=== PATIENT | male | born 1970 | race Caucasian/White ===

== ENCOUNTER 2019-03-08 08:44 | Day surgery (SDC) | payer OTHER ==
[~2019-03-08] VITALS: Ht 180.3 cm; Wt 78.9 kg
[~2019-03-08 08:44] MED LIST: LISINOPRIL10 MG PO; NORCO 7.5-3251 EACH PO
--- NOTE | 2019-03-08 12:21 | NUR ---
03/08/19 [address] 1209- PT ARRIVES TO PACU EASILY AROUSABLE TO VOICE. PT FALLS ASLEEP WHEN NOT BEING TALKED TO. RESP EVEN AND UNLABORED. OXYGEN SAT HIGH 90'S TO 100% ON 3L VIA NC. 1213- OXYGEN TITRATED OFF. 1219- DR. DUNHAM AT THE BEDSIDE TO TALK WITH THE PT.
--- NOTE | 2019-03-09 12:35 | OR ---
[facility] [address] [place], [place] [address] Signed DATE OF OPERATION: 03/08/2019 SURGEON: New Dunham MD PREOPERATIVE DIAGNOSIS: Persistent progressive dysphagia. POSTOPERATIVE DIAGNOSIS: Feline esophagus suggestive of eosinophilic esophagitis. PROCEDURE PERFORMED: Esophagogastroduodenoscopy with biopsy. ANESTHESIA: Intravenous sedation, fentanyl 100 mcg, Versed 4 mg. INDICATION: This is a 48-year-old white man is a patient of Sophia Crain and has progressive complaints of dysphagia mostly to solids. Notably, his daughter has similar symptoms and his father as well. He has clinical symptoms suggestive of reflux disease for which he has taken Prilosec. He has had no hematemesis. He currently is not taking PPI medication. He is admitted at this time to undergo upper endoscopy to better characterize the problem, understanding the risks of bleeding, infection, and perforation. FINDINGS: Immediately noted was a feline esophagus in the mid to upper portion of the esophagus. There was no sign of distinct stricture. He had no sign of hiatal hernia. The stomach was otherwise normal as was the duodenum. CLOtest was negative 15 minutes post procedure. Findings are highly suggestive of eosinophilic esophagitis though pathology is pending. DESCRIPTION OF PROCEDURE: The patient was brought to the endoscopy suite, placed in lateral decubitus position after undergoing topical hypopharyngeal anesthesia with Hurricaine spray. He was given intravenous sedation to the point of slurred speech and nystagmus with full cardiopulmonary monitoring using fentanyl and Versed. A bite block was placed. An Olympus video upper endoscope was passed in the hypopharynx. The vocal cords appeared normal as did the arytenoid processes. The scope was easily advanced to the esophagus. Immediately noted in the proximal and mid esophagus was a concentric ring consistent Electronically Signed By: NEW DUNHAM MD 03/09/19 1235 PATIENT NAME: SULLY THOMAS OPERATIVE REPORT DATE OF : 74 REPORT #: [id number] PHYSICIAN: NEW DUNHAM MD PCP: SOPHIA CRAIN REPORT IS CONFIDENTIAL AND NOT TO BE RELEASED WITHOUT AUTHORIZATION [facility] [address], [place] [address] Signed with feline esophagus suggestive of eosinophilic esophagitis. The scope was advanced to the distal portion where there was no sign of Caro's epithelium, stricture or neoplasm. The scope was passed in the stomach without problem. The gastric folds appeared normal. The antrum was normal as was the pylorus. The scope was passed through the pylorus into the duodenum. Biopsies were taken of the duodenum to assess for celiac disease. The scope was withdrawn to the esophagus to the stomach and biopsies were taken of the antrum for both KENNY and pathologic testing. Retroflexed view was undertaken showing a good flap valve. No sign of hiatal hernia. The scope was withdrawn to the distal esophagus which was affirmed to be normal. Biopsies were taken there. The scope was withdrawn to the mid portion where felinization had been noted and multiple biopsies taken. Proximal biopsies were also taken. The scope was withdrawn and vocal cord is visualized as normal. Scope was removed and the patient was taken to recovery room in good condition. CONCLUDING DIAGNOSIS: Strong suspicion of the eosinophilic esophagitis. PLAN: Initiate Prilosec 20 mg p.o. daily and initiate Flonase 2 squirts p.o. swallowed b.i.d. Return to see me in 4-6 weeks to assess progress as well as pathology report. MD BRICE Colbert/RANGELL /[id number] cc: JUAN Sr Copies: SOPHIA CRAIN ~ Electronically Signed By: NEW DUNHAM MD 03/09/19 1235 PATIENT NAME: SULLY THOMAS OPERATIVE REPORT DATE OF : 74 REPORT #: [id number] PHYSICIAN: NEW DUNHAM MD PCP: SOPHIA CRAIN REPORT IS CONFIDENTIAL AND NOT TO BE RELEASED WITHOUT AUTHORIZATION
--- NOTE | 2019-03-11 14:46 | PATH ---
[facility] [address] [place], [place] [address] Signed SPECIMEN(S): A DUODENUM NOS SPECIMEN(S): B ANTRUM/PYLORUS SPECIMEN(S): C DISTAL ESOPHAGUS NOS SPECIMEN(S): D MID ESOPHAGUS NOS SPECIMEN(S): E PROXIMAL ESOPHAGUS NOS SPECIMEN SOURCE: A. DUODENUM NOS B. ANTRUM/PYLORUS C. DISTAL ESOPHAGUS NOS D. MID ESOPHAGUS NOS E. PROXIMAL ESOPHAGUS NOS CLINICAL HISTORY: Gastroesophageal reflux disease with esophagitis. Esophageal dysphagia. MICROSCOPIC DESCRIPTION: A, B. Histologic sections of all submitted blocks are examined by light microscopy. These findings, together with the gross examination, support the pathologic diagnosis. C. Sections reveal biopsies of esophageal mucosa composed of stratified squamous nonkeratinizing epithelium. The basal cell layer is prominent and rete ridges are elongated. Prominent eosinophilic infiltration into the esophageal mucosa is present. Greater than 15 eosinophils per high power field in multiple garrett. No glandular mucosa is present. There is no evidence of malignancy or atypia. D. Sections reveal biopsies of esophageal mucosa composed of stratified squamous nonkeratinizing epithelium. The basal cell layer is not prominent and rete ridges are not elongated. A few intraepithelial lymphocytes are seen. A rare intraepithelial eosinophils is seen. No glandular mucosa is present. There is no evidence of malignancy or atypia. E. Sections reveal biopsies of esophageal mucosa composed of stratified squamous nonkeratinizing epithelium. The basal cell layer is not prominent and rete ridges are not elongated. Small numbers of lymphocytes are present. Intraepithelial eosinophils are identified but are less than 15 per high powered field. No glandular mucosa is present. There is no evidence of malignancy or atypia. LJA:cml PATIENT NAME: SULLY THOMAS PATHOLOGY DATE OF : 74 REPORT #: [id number] PHYSICIAN: GIUDO MASON PCP: SOPHIA LOPEZ REPORT IS CONFIDENTIAL AND NOT TO BE RELEASED WITHOUT AUTHORIZATION [facility] [address] [place], [place] [address] Signed FINAL PATHOLOGIC DIAGNOSIS: A. Mucosa, duodenum, biopsy: - Duodenal mucosa with normal villous architecture, no microscopic pathologic diagnosis. B. Mucosa, antrum, biopsy: - No microscopic pathologic diagnosis. - Negative for the presence of bacteria morphologically consistent with Helicobacter on HE stained sections. C. Mucosa, distal esophagus, biopsy: - Mild to moderate chronic esophagitis with features consistent with eosinophilic esophagitis. (see comment) D. Mucosa, mid esophagus, biopsy: - Minimal chronic esophagitis. - Negative for eosinophilic esophagitis. E. Mucosa, proximal esophagus, biopsy: - Mild chronic esophagitis. - Negative for eosinophilic esophagitis. COMMENT: C -- Eosinophilic infiltration can also be seen in reflux esophagitis, though not of this degree. A diagnosis of eosinophilic esophagitis requires correlation with historical and endoscopic features. LJA:cml:C2NR GROSS DESCRIPTION: Five specimens are received in five containers, labeled "BS." A. The specimen, labeled "BS, duodenal biopsy," is received in formalin and consists of two, 0.2 and 0.3 cm, collins-brown tissue fragments. The specimen is entirely submitted in cassette (A1). B. The specimen, labeled "BS, antrum biopsy," is received in formalin and consists of a single 0.2 cm, red-brown tissue fragment. The specimen is entirely submitted in cassette (B1). C. The specimen, labeled "BS, distal esophageal biopsy," is received in formalin and consists of a single 0.3 cm, collins tissue fragment. The specimen is entirely submitted in cassette (C1). D. The specimen, labeled "BS, mid-esophageal biopsy," is received in formalin and consists of a single 0.5 cm, collins-white tissue fragment. The specimen is entirely submitted in cassette (D1). E. The specimen, labeled "BS, proximal esophageal biopsy," is received in formalin and consists of two, 0.2 and 0.3 cm, collins-white tissue fragments. The PATIENT NAME: SULLY THOMAS PATHOLOGY DATE OF : 74 REPORT #: [id number] PHYSICIAN: GUIDO MASON PCP: SOPHIA LOPEZ REPORT IS CONFIDENTIAL AND NOT TO BE RELEASED WITHOUT AUTHORIZATION [facility] [address] [place] [id number] Signed specimen is entirely submitted in cassette (E1). AM (under the direct supervision of a pathologist) The Gross Description was prepared using a voice recognition system. The report was reviewed for accuracy; however, sound-alike word errors, addition and/or deletions may occur. If there is any question about this report, please contact Client Services. PERFORMING LABORATORY: The technical component was performed by [facility], [address] [place] [id number] (Archivist: Deloris Pitts MD; CLIA# [id number]). Professional interpretation was performed by [facility], [facility], [address] [address] (Archivist: Hector Curry MD; CLIA# [id number]). Diagnostician: Hector Curry MD Pathologist Electronically Signed 03/11/2019 Copies: ~ PATIENT NAME: SULLY THOMAS PATHOLOGY DATE OF : 74 REPORT #: [id number] PHYSICIAN: GUIDO PATHOLOGY PCP: SOPHIA LOPEZ REPORT IS CONFIDENTIAL AND NOT TO BE RELEASED WITHOUT AUTHORIZATION
== END 2019-03-08 12:45 | disposition home or self-care (01) ==
LOC: DS 08:44 → OPS 08:44 → DS 10:00 → OPS 10:00
PROVIDERS: Surgery
PROC: 0DB78ZX Excision of Stomach, Pylorus, Via Natural or Artificial Opening Endoscopic, Diagnostic (ICD-10-PCS; 2019-03-08)
PROC: 0DB18ZX Excision of Upper Esophagus, Via Natural or Artificial Opening Endoscopic, Diagnostic (ICD-10-PCS; 2019-03-08)
PROC: 0DB28ZX Excision of Middle Esophagus, Via Natural or Artificial Opening Endoscopic, Diagnostic (ICD-10-PCS; 2019-03-08)
PROC: 0DB38ZX Excision of Lower Esophagus, Via Natural or Artificial Opening Endoscopic, Diagnostic (ICD-10-PCS; 2019-03-08)
PROC: 0DB98ZX Excision of Duodenum, Via Natural or Artificial Opening Endoscopic, Diagnostic (ICD-10-PCS; principal; 2019-03-08 10:00)
DX: K21.0 Gastro-esophageal reflux disease with esophagitis (principal)
CPT/HCPCS: 99153; G0500; J2250; J3010; J7121